=== PATIENT | female | born 1975 | race Caucasian/White ===

== ENCOUNTER 2017-04-05 12:26 | Emergency (ER) | payer OTHER ==
[2017-04-05 14:02] VITALS: O2SAT 100
[2017-04-05] MEDS ORDERED: Sodium Chloride 0.9% 1000 ML 1,000 ML IV STA (14:11)
[2017-04-05] MEDS ORDERED: TORAdol 30 mg Injection IV ONE (14:13)
--- NOTE | 2017-04-05 14:16 | ERPHSYRPT ---
- History of Present Illness Time Seen by Provider: 04/05/17 14:13 Historian: patient Exam Limitations: no limitations Patient Subjective Stated Complaint: pt states she has abdominal pain with dysuria that started on 04/04/17. denies any vomiting or diarrhea. Triage Nursing Assessment: pt pink, warm, dry. abdomen soft, nontender. bowel sounds present in all 4 qauds. pt afebrile. Physician History: This is a 41-year-old white female with history of anxiety and depression. She arrives with complaint of suprapubic pain and dysuria pain in her right flank symptoms since yesterday states her pain is moderately severe no vomiting no diarrhea, Past medical history includes anxiety and depression, Past surgical history includes appendectomy and , Timing/Duration: yesterday Activities at Onset: none Quality: aching, cramping Abdominal Pain Onset Location: suprapubic, flank (right flank) Pain Radiation: flank (right flank) Severity of Pain-Max: moderate Severity of Pain-Current: moderate Modifying Factors: Improves With: nothing Associated Symptoms: back (right flank pain), other (dysuria), No chest pain, No diaphoresis, No diarrhea, No fever/chills, No fatigue, No headache, No heartburn, No loss of appetite, No nausea, No neck pain, No rash, No shortness of breath, No syncope, No vomiting, No weakness Previous symptoms: no prior history Allergies/Adverse Reactions: No Known Drug Allergies Allergy (Unverified 04/05/17 13:03) Home Medications: Alprazolam 1 mg [Xanax 1 mg] 1 mg PO TID 04/05/17 [History] Hx Tetanus, Diphtheria Vaccination/Date Given: Yes (unknown) Hx Influenza Vaccination/Date Given: No Hx Pneumococcal Vaccination/Date Given: No Immunizations Up to Date: Yes - Review of Systems Constitutional: No Fever, No Chills Eyes: No Symptoms Ears, Nose, & Throat: No Symptoms Respiratory: No Cough, No Dyspnea Cardiac: No Chest Pain, No Edema, No Syncope Abdominal/Gastrointestinal: Abdominal Pain Genitourinary Symptoms: Dysuria, Frequency, Flank Pain (right flank pain), No Hematuria, No Hesitancy, No Incontinence, No Urgency, No Urinary Retention, No Menorrhagia, No , No Vaginal Bleeding, No Vaginal Discharge, No Vaginal Itching Musculoskeletal: No Back Pain, No Neck Pain Skin: No Rash Neurological: No Dizziness, No Focal Weakness, No Sensory Changes Psychological: No Symptoms Endocrine: No Symptoms All Other Systems: Reviewed and Negative - Past Medical History Pertinent Past Medical History: Yes Psycho-Social History: Anxiety, Depression Other Medical History: uti - Past Surgical History Past Surgical History: Yes Gastrointestinal: Appendectomy Female Surgical History: Section - Social History Smoking Status: Current every day smoker How long have you smoked: 28 Exposure to second hand smoke: Yes Drug Use: marijuana Patient Lives Alone: No - Female History Hx Last Menstrual Period: mar 20 2017 Hx Now: No - Nursing Vital Signs Nursing Vital Signs: Initial Vital Signs Pulse Rate 88 04/05/17 12:55 Respiratory Rate 16 04/05/17 12:55 Blood Pressure 106/62 04/05/17 12:55 O2 Sat by Pulse Oximetry 98 04/05/17 12:55 Pain Scale Pain Intensity 0 - Physical Exam General Appearance: other (well-developed well-nourished white female moderate distress) Eye Exam: PERRL/EOMI, eyes nml inspection Ears, Nose, Throat Exam: normal ENT inspection, pharynx normal, moist mucous membranes Neck Exam: normal inspection, non-tender, supple, full range of motion Respiratory Exam: normal breath sounds, lungs clear, No respiratory distress Cardiovascular Exam: regular rate/rhythm, normal heart sounds Gastrointestinal/Abdomen Exam: soft, normal bowel sounds, tenderness ( suprapubic tenderness), No distention, No mass, No guarding, No ecchymosis, No pulsatile mass, No rebound Back Exam: normal range of motion, CVA tenderness (right flank tenderness) Extremity Exam: normal inspection, normal range of motion, pelvis stable Neurologic Exam: alert, oriented x 3, cooperative, normal mood/affect, nml cerebellar function, sensation nml, No motor deficits Skin Exam: normal color, warm, dry SpO2 Interpretation: normal (100%) SpO2: 100 Oxygen Delivery: Room Air - Course Nursing assessment & vital signs reviewed: Yes Ordered Tests: Active Orders 24 hr Category Date Time Status IV Insertion STAT Care 04/05/17 14:11 Active AMYLASE Stat Lab 04/05/17 14:26 Completed CBC W DIFF Stat Lab 04/05/17 14:26 Completed CMP Stat Lab 04/05/17 14:26 Completed CULTURE,URINE Stat Lab 04/05/17 14:20 Received HCG QUALITATIVE,SERUM Stat Lab 04/05/17 14:26 Completed LIPASE Stat Lab 04/05/17 14:26 Completed UA W/ MICROSCOPIC Stat Lab 04/05/17 14:20 Completed Urine Triage Profile Stat Lab 04/05/17 14:12 Completed Medication Summary Discontinued Medications Generic Name Dose Route Start Last Admin Trade Name Lianna PRN Reason Stop Dose Admin Hydrocodone Bitart/Acetaminophen 1 tab 04/05/17 15:42 04/05/17 15:45 [place] 5/325 Mg PO 04/05/17 15:43 1 tab STAT ONE Administration Hydrocodone Bitart/Acetaminophen Confirm 04/05/17 15:45 [place] 5/325 Mg Administered 04/05/17 15:46 Dose 1 tab .ROUTE .STK-MED ONE Sodium Chloride 1,000 mls @ 999 mls/hr 04/05/17 14:11 04/05/17 14:28 Sodium Chloride 0.9% 1000 Ml IV 04/05/17 15:11 999 mls/hr .Q1H1M STA Administration Sodium Chloride Confirm 04/05/17 14:28 Sodium Chloride 0.9% 1000 Ml Administered 04/05/17 14:29 Dose 1,000 mls @ ud .ROUTE .STK-MED ONE Ceftriaxone Sodium/Dextrose 1 g in 50 mls @ 100 mls/hr 04/05/17 15:42 15:46 Rocephin 1 Gm-D5w 50 Ml Bag IV 04/05/17 16:11 100 mls/hr STAT STA Administration Ceftriaxone Sodium/Dextrose Confirm 04/05/17 15:45 Rocephin 1 Gm-D5w 50 Ml Bag Administered 04/05/17 15:46 Dose 1 g in 50 mls @ ud IV .STK-MED ONE Ketorolac Tromethamine 30 mg 04/05/17 14:13 04/05/17 14:28 Toradol 30 Mg Injection IV 04/05/17 14:14 30 mg STAT ONE Administration Ketorolac Tromethamine Confirm 04/05/17 14:28 Toradol 30 Mg Injection Administered 04/05/17 14:29 Dose 30 mg .ROUTE .STK-MED ONE Lab/Rad Data: Laboratory Result Diagrams 04/05/17 14:26 04/05/17 14:26 Laboratory Results 04/05/17 04/05/17 04/05/17 Range/Units 14:26 14:26 14:26 WBC 8.2 (4.0-10.5) K/mm3 RBC 4.89 (4.1-5.4) M/mm3 Hgb 14.2 (12.0-16.0) gm/dl Hct 43.7 (35-47) % MCV 89.4 (78-100) fl MCH 29.0 (26-32) pg MCHC 32.5 (32-36) g/dl RDW 13.6 (11.5-14.0) % Plt Count 228 (150-450) K/mm3 MPV 10.3 H (6-9.5) fl Gran % 82.6 H (36.0-66.0) % Lymphocytes % 8.7 L (24.0-44.0) % Monocytes % 8.5 (0.0-12.0) % Eosinophils % 0.1 (0.00-5.0) % Basophils % 0.1 (0.0-0.4) % Basophils # 0.01 (0-0.4) Sodium 136 (136-145) mEq/L Potassium 4.0 (3.5-5.1) mEq/L Chloride 98 (98-107) mEq/L Carbon Dioxide 28.2 (21-32) mEq/L Anion Gap 13.8 (5-15) MEQ/L BUN 12 (9-20) mg/dL Creatinine 1.09 (0.55-1.30) mg/dl Estimated GFR 59 ML/MIN Glucose 88 (70-110) MG/DL Calcium 9.2 (8.5-10.1) mg/dL Total Bilirubin 0.90 (0.2-1.0) mg/dL AST 15 (15-37) U/L ALT 10 L (12-78) U/L Alkaline Phosphatase 53 (46-116) U/L Serum Total Protein 7.1 (6.4-8.2) gm/dL Albumin 4.0 (3.4-5.0) g/dL Amylase 28 (25-115) U/L Lipase 67 L (73-393) U/L Serum , Qual NEGATIVE (Negative) Ur Collection Type Urine Color (YELLOW) Urine Appearance (CLEAR) Urine pH (5-6) Ur Specific [place] (1.005-1.025) Urine Protein (Negative) Urine Ketones (NEGATIVE) Urine Blood (0-5) [place]o/ul Urine Nitrite (NEGATIVE) Urine Bilirubin (NEGATIVE) Urine Urobilinogen (0-1) mg/dL Ur Leukocyte Esterase (NEGATIVE) Urine Microscopic RBC (0-2) /HPF Urine Microscopic WBC (0-5) /HPF Ur Epithelial Cells (FEW) /HPF Urine Bacteria (NEGATIVE) /HPF Urine Culture Reflexed (NO) Urine Glucose (NEGATIVE) mg/dL Urine Opiates Level (NEGATIVE) Ur Methadone (NEGATIVE) Urine Barbiturates (NEGATIVE) Ur Phencyclidine (PCP) (NEGATIVE) Urine Amphetamine (NEGATIVE) U Benzodiazepine Level (NEGATIVE) Urine Cocaine (NEGATIVE) Urine Marijuana (THC) (NEGATIVE) Specimen Received 04/05/17 04/05/17 Range/Units 14:20 14:12 WBC (4.0-10.5) K/mm3 RBC (4.1-5.4) M/mm3 Hgb (12.0-16.0) gm/dl Hct (35-47) % MCV (78-100) fl MCH (26-32) pg MCHC (32-36) g/dl RDW (11.5-14.0) % Plt Count (150-450) K/mm3 MPV (6-9.5) fl Gran % (36.0-66.0) % Lymphocytes % (24.0-44.0) % Monocytes % (0.0-12.0) % Eosinophils % (0.00-5.0) % Basophils % (0.0-0.4) % Basophils # (0-0.4) Sodium (136-145) mEq/L Potassium (3.5-5.1) mEq/L Chloride (98-107) mEq/L Carbon Dioxide (21-32) mEq/L Anion Gap (5-15) MEQ/L BUN (9-20) mg/dL Creatinine (0.55-1.30) mg/dl Estimated GFR ML/MIN Glucose (70-110) MG/DL Calcium (8.5-10.1) mg/dL Total Bilirubin (0.2-1.0) mg/dL AST (15-37) U/L ALT (12-78) U/L Alkaline Phosphatase (46-116) U/L Serum Total Protein (6.4-8.2) gm/dL Albumin (3.4-5.0) g/dL Amylase (25-115) U/L Lipase (73-393) U/L Serum , Qual (Negative) Ur Collection Type VOID Urine Color YELLOW (YELLOW) Urine Appearance CLOUDY (CLEAR) Urine pH 6.0 (5-6) Ur Specific [place] 1.015 (1.005-1.025) Urine Protein 30 (Negative) Urine Ketones MODERATE (NEGATIVE) Urine Blood 250 (0-5) [place]o/ul Urine Nitrite POSITIVE (NEGATIVE) Urine Bilirubin NEGATIVE (NEGATIVE) Urine Urobilinogen 4 (0-1) mg/dL Ur Leukocyte Esterase 2+ (NEGATIVE) Urine Microscopic RBC 0-2 (0-2) /HPF Urine Microscopic WBC >100 (0-5) /HPF Ur Epithelial Cells FEW (FEW) /HPF Urine Bacteria PACKED (NEGATIVE) /HPF Urine Culture Reflexed YES (NO) Urine Glucose NEGATIVE (NEGATIVE) mg/dL Urine Opiates Level NEG. (NEGATIVE) Ur Methadone NEG. (NEGATIVE) Urine Barbiturates NEG. (NEGATIVE) Ur Phencyclidine (PCP) NEG. (NEGATIVE) Urine Amphetamine POS. (NEGATIVE) U Benzodiazepine Level POS. (NEGATIVE) Urine Cocaine NEG. (NEGATIVE) Urine Marijuana (THC) POS. (NEGATIVE) Specimen Received 04/05/17 1415 - Progress Progress: improved Progress Note: 04/05/17 15:23 41-year-old white female arrives with complaint of right flank pain dysuria symptoms for 4 days Awaiting final results of urine patient does have positive nitrites positive leukocyte esterase positive, blood. White count is normal. Unfortunately urine drug screen turns up with positive amphetamines positive benzodiazepine and positive THC. Patient states that she has a prescription for Xanax however I do not see a fill on this since March 2016. Patient is given 1 L of normal saline have given patient Toradol for pain, Will anticipate discharged with antibiotics nonsteroidal anti-inflammatories for pain, - Departure Time of Disposition: 16:25 Departure Disposition: Home Clinical Impression: Right flank pain Abdominal pain Qualifiers: Abdominal location: unspecified location Qualified Code(s): R10.9 - Unspecified abdominal pain UTI (urinary tract infection) Qualifiers: Urinary tract infection type: acute cystitis Hematuria presence: without hematuria Qualified Code(s): N30.00 - Acute cystitis without hematuria Condition: Fair Critical Care Time: No Referrals: DOCTOR,NO FAMILY [Primary Care Provider] - Additional Instructions: Return home. Plenty of fluids. Bactrim DS one orally twice a day for 10 days. [place] 5/325 #10 one orally every 4-6 hours as needed for pain. Follow-up with your family doctor. Return for acute distress or for severe symptoms. Prescriptions: Hydrocodone/Acetaminophen [[place] 5-325 Tablet] 1 tab PO Q4-6HPRN PRN #10 tablet MDD 6 tablets PRN Reason: Pain Smz/Tmp Ds Tablet [Bactrim Ds Tablet] 1 tab PO BID #20 tablet
[2017-04-05 14:20] LABS: Appearance CLOUDY (CLEAR); Leukocyte Esterase 2+ (NEGATIVE); Nitrite POSITIVE (NEGATIVE); Protein,Urine Dip 30 (Negative); Specific Gravity 1.015 (1.005-1.025)
[2017-04-05 14:21] LABS: Bilirubin NEGATIVE (NEGATIVE); Blood 250 Ery/ul (0-5); Glucose NEGATIVE (NEGATIVE); Ketones MODERATE (NEGATIVE); Urobilinogen 4 mg/dL (0-1)
[2017-04-05 14:25] LABS: Amphetamine,Urine POS. (NEGATIVE); Barbiturate,Urine NEG. (NEGATIVE); Benzodiazepine,Urine POS. (NEGATIVE); Cocaine,Urine NEG. (NEGATIVE); Methadone,Urine NEG. (NEGATIVE); Opiate,Urine NEG. (NEGATIVE); PCP,Urine NEG. (NEGATIVE); THC,Urine POS. (NEGATIVE)
[2017-04-05] MEDS ORDERED: TORAdol 30 mg Injection ONE (14:28)
[2017-04-05] MEDS ORDERED: Sodium Chloride 0.9% 1000 ML 1,000 ML ONE (14:28)
[2017-04-05 14:35] LABS: BASOPHIL % 0.1 % (0.0-0.4); Basophil (Absolute #) 0.01 (0-0.4); Eosinophil % 0.1 % (0.00-5.0); Eosinophil (Absolute #) 0.01 (0-0.5); Granulocyte Absolute (ANC) 6.79 (1.4-6.9); Granulocytes % 82.6 % (36.0-66.0); Hematocrit 43.7 % (35-47); Hemoglobin 14.2 gm/dl (12.0-16.0); Lymphocyte (Absolute #) 0.72 (1.0-4.6); Lymphocytes % 8.7 % (24.0-44.0); Mean Cell Volume 89.4 fl (78-100); Mean Corpuscular Hgb Concent. 32.5 g/dl (32-36); Mean Platelet Volume 10.3 fl (6-9.5); Monocytes % 8.5 % (0.0-12.0); Platelet Count 228 K/mm3 (150-450); Red Blood Count 4.89 M/mm3 (4.1-5.4); Red Cell Distribution Width 13.6 % (11.5-14.0); White Blood Count 8.2 K/mm3 (4.0-10.5)
[2017-04-05 15:22] LABS: Bacteria PACKED /HPF (NEGATIVE); Epithelial Cells FEW /HPF (FEW); WBC >100 /HPF (0-5)
[2017-04-05 15:37] LABS: ANION GAP 13.8 MEQ/L (5-15); BILIRUBIN,TOTAL 0.9 mg/dL (0.2-1.0); Calcium 9.2 mg/dL (8.5-10.1); Carbon Dioxide 28.2 mEq/L (21-32); Creatinine 1 1.09 mg/dl (0.55-1.30); Total Protein 7.1 gm/dL (6.4-8.2)
[2017-04-05] MEDS ORDERED: ROCEPHIN 1 Gm-D5w 50 ml Bag** 1 G/50 ML IVPB IV STA (15:42)
[2017-04-05] MEDS ORDERED: NORCO 5/325 MG PO ONE (15:42)
[2017-04-05] MEDS ORDERED: ROCEPHIN 1 Gm-D5w 50 ml Bag** 1 G/50 ML IVPB IV ONE (15:45)
[2017-04-05] MEDS ORDERED: NORCO 5/325 MG ONE (15:45)
[2017-04-05 15:53] VITALS: BP 107/65; PULSE 78
== END 2017-04-05 16:23 | disposition home or self-care (01) ==
LOC: ED 12:26
DX: R10.9 Unspecified abdominal pain (principal); N30.00 Acute cystitis without hematuria; R30.0 Dysuria
CPT/HCPCS: 36000; 36415; 80053; 80307; 81000; 82150; 83690; 84703; 85025; 87077; 87086; 87186; 96360; 96365; 96374; 99284; J0696; J1885; A9270-GY

== ENCOUNTER 2017-05-23 18:18 | Emergency (ER) | payer OTHER ==
[2017-05-23] MEDS ORDERED: GlucaGen 1 MG ONE (18:22)
[2017-05-23 18:25] VITALS: BP 152/98; PULSE 112; O2SAT 99
[2017-05-23] MEDS ORDERED: GlucaGen 1 MG IV ONE (18:28)
[2017-05-23] MEDS ORDERED: Ativan 2 MG/1 ML VIAL IV ONE (18:29)
--- NOTE | 2017-05-23 18:29 | ERPHSYRPT ---
- History of Present Illness Time Seen by Provider: 05/23/17 18:23 Source: patient Exam Limitations: no limitations Physician History: The patient is a 41-year-old female complaining that she was eating a microwave burrito when the corner of it got stuck in her throat just a few minutes before arrival. She tried swallowing liquid but it just comes right back up. She is very anxious and worried at this time. She is able to breathe and speak. She is not able to swallow her own saliva. She thinks that she ate a hard corner of the softgel burrito that became hard when she was using the microwave too long. Her past medical history is significant for anxiety. Timing/Duration: abrupt onset Severity: moderate ENT Location: throat Prearrival Treatment: no prearrival treatment Modifying Factors: Improves With: other (eating) Associated Symptoms: drooling, difficulty swallowing Allergies/Adverse Reactions: No Known Drug Allergies Allergy (Verified 05/23/17 18:25) Home Medications: Alprazolam 1 mg [Xanax 1 mg] 1 mg PO TID 04/05/17 [History] Hx Tetanus, Diphtheria Vaccination/Date Given: Yes (unknown) Hx Influenza Vaccination/Date Given: No Hx Pneumococcal Vaccination/Date Given: No - Review of Systems Constitutional: No Fever, No Chills Eyes: No Symptoms Ears, Nose, & Throat: No Symptoms Respiratory: No Cough, No Dyspnea Cardiac: No Chest Pain, No Edema, No Syncope Abdominal/Gastrointestinal: No Abdominal Pain, No Nausea, No Vomiting, No Diarrhea Genitourinary Symptoms: No Dysuria Musculoskeletal: No Back Pain, No Neck Pain Skin: No Rash Neurological: No Dizziness, No Focal Weakness, No Sensory Changes Psychological: No Symptoms Endocrine: No Symptoms Hematologic/Lymphatic: No Symptoms Immunological/Allergic: No Symptoms All Other Systems: Reviewed and Negative - Past Medical History Pertinent Past Medical History: Yes Psycho-Social History: Anxiety, Depression Other Medical History: uti - Past Surgical History Past Surgical History: Yes Gastrointestinal: Appendectomy Female Surgical History: Section - Social History Smoking Status: Current every day smoker How long have you smoked: 28 Exposure to second hand smoke: Yes Drug Use: marijuana Patient Lives Alone: No - Physical Exam General Appearance: mild distress, anxiety Eye Exam: bilateral eye: normal inspection, PERRL Ear Exam: bilateral ear: auricle normal Nasal Exam: normal inspection Throat Exam: foreign body (unable to visualize) Neck Exam: supple Cardiovascular/Respiratory Exam: normal breath sounds, regular rate/rhythm Abdominal Exam: non-tender, soft Neurologic Exam: alert, oriented x 3, sensation nml, No motor deficits Skin Exam: normal color, warm, dry SpO2 Interpretation: normal Ordered Tests: Medication Summary Discontinued Medications Generic Name Dose Route Start Last Admin Trade Name Lianna PRN Reason Stop Dose Admin Glucagon Confirm 05/23/17 18:22 Glucagen 1 Mg Administered 05/23/17 18:23 Dose 1 mg .ROUTE .[place] ONE - Progress Progress: improved Progress Note: 05/23/17 18:35 Within the a minute after receiving glucagon 1 mg by IV, the patient relax enough to dislodge and regurgitate the burrito that she had swallowed. She is much better now. She still requested some Ativan to calm her nerves. The patient was given 1 mg Ativan by IV. Counseled pt/family regarding: diagnosis - Departure Time of Disposition: 18:36 Departure Disposition: Home Clinical Impression: Esophageal foreign body Condition: Stable Critical Care Time: No Referrals: DOCTOR,NO FAMILY [Primary Care Provider] - Additional Instructions: You had a foreign body lodged in your esophagus that you were able to regurgitate after receiving glucagon 1 mg by IV. You also received Ativan 1 mg by IV. Follow-up as needed.
[2017-05-23] MEDS ORDERED: Ativan 2 MG/1 ML VIAL ONE (18:30)
== END 2017-05-23 18:50 | disposition home or self-care (01) ==
LOC: ED 18:18
DX: T18.128A Food in esophagus causing other injury, initial encounter (principal)
CPT/HCPCS: 36000; 96374; 96375; 99284; J1610; J2060

== ENCOUNTER 2017-09-27 12:55 | Emergency (ER) | payer OTHER ==
[2017-09-27 13:12] VITALS: BP 130/74; PULSE 68; O2SAT 99
--- NOTE | 2017-09-27 13:23 | ERPHSYRPT ---
- History of Present Illness Time Seen by Provider: 09/27/17 13:12 Source: patient Exam Limitations: no limitations Patient Subjective Stated Complaint: pt here for a rash for over a week. no new meds Triage Nursing Assessment: pt alert ,walked in, resp easy, skin w/d/p. has red rash to arms and neck, pt has tried lotions,bedadryl,co itching Physician History: The patient is a 41-year-old female complaining of an itchy rash on both forearms and the right side of her neck for about one week. She read on the Internet and was worried that it might be scabies. She has a history of anxiety and has not had her medicines for some time. She is worried that this may be something serious. Timing/Duration: week(s) (1) Quality: itchy Severity: mild Location: extremities (forearms), neck Possible Causes: no cause identified Modifying Factors: Improves With: calamine lotion Associated Symptoms: rash Allergies/Adverse Reactions: No Known Drug Allergies Allergy (Verified 09/27/17 13:07) Home Medications: Alprazolam 1 mg [Xanax 1 mg] 1 mg PO TID 04/05/17 [History] Fluoxetine HCl 20 mg [Prozac 20 MG] 20 mg DAILY 09/27/17 [History] Hx Tetanus, Diphtheria Vaccination/Date Given: No Hx Influenza Vaccination/Date Given: No Hx Pneumococcal Vaccination/Date Given: No Immunizations Up to Date: Yes - Review of Systems Constitutional: No Fever, No Chills Eyes: No Symptoms Ears, Nose, & Throat: No Symptoms Respiratory: No Cough, No Dyspnea Cardiac: No Chest Pain, No Edema, No Syncope Abdominal/Gastrointestinal: No Abdominal Pain, No Nausea, No Vomiting, No Diarrhea Genitourinary Symptoms: No Dysuria Musculoskeletal: No Back Pain, No Neck Pain Skin: Rash Neurological: No Dizziness, No Focal Weakness, No Sensory Changes Psychological: No Symptoms Endocrine: No Symptoms Hematologic/Lymphatic: No Symptoms Immunological/Allergic: No Symptoms All Other Systems: Reviewed and Negative - Past Medical History Pertinent Past Medical History: Yes Psycho-Social History: Anxiety, Depression Other Medical History: uti - Past Surgical History Past Surgical History: Yes Gastrointestinal: Appendectomy Female Surgical History: Section - Social History Smoking Status: Current every day smoker How long have you smoked: 28 Exposure to second hand smoke: Yes Drug Use: marijuana Patient Lives Alone: No - Female History Hx Last Menstrual Period: 30 days ago Hx Now: No - Nursing Vital Signs Nursing Vital Signs: Initial Vital Signs O2 Sat by Pulse Oximetry 98 09/27/17 13:02 Pain Scale Pain Intensity 0 - Physical Exam General Appearance: alert, anxiety Eye Exam: PERRL/EOMI, eyes nml inspection Ears, Nose, Throat Exam: normal ENT inspection, pharynx normal, moist mucous membranes Neck Exam: normal inspection, non-tender, supple, full range of motion Respiratory Exam: normal breath sounds, lungs clear, No respiratory distress Cardiovascular Exam: regular rate/rhythm, normal heart sounds Gastrointestinal/Abdomen Exam: soft, mass, No tenderness Pelvic Exam: not done Rectal Exam: not done Back Exam: normal inspection, normal range of motion, No CVA tenderness, No vertebral tenderness Extremity Exam: normal inspection, normal range of motion Neurologic Exam: alert, oriented x 3, cooperative, normal mood/affect, sensation nml, No motor deficits Skin Exam: rash (linear red rash on bilateral forearms and right neck.) SpO2 Interpretation: normal SpO2: 99 Oxygen Delivery: Room Air - Progress Progress: unchanged - Departure Time of Disposition: 13:26 Departure Disposition: Home Clinical Impression: Poison [place] dermatitis Condition: Stable Critical Care Time: No Additional Instructions: You have a rash consistent with exposure to poison [place]. Take prednisone 60 mg once a day for 5 days. You have been given a list of local doctors. Please follow-up with a local doctor for evaluation of anxiety. Prescriptions: Prednisone 20 mg [Deltasone 20 mg] 3 tab PO DAILY #15 tablet
== END 2017-09-27 13:42 | disposition home or self-care (01) ==
LOC: ED 12:55
DX: L23.7 Allergic contact dermatitis due to plants, except food (principal)
CPT/HCPCS: 99283

== ENCOUNTER 2025-01-25 00:44 | Emergency (ER) | payer OTHER ==
[2025-01-25 00:59] VITALS: TEMP 96.8
--- NOTE | 2025-01-25 01:10 | ERPHSYRPT ---
- History of Present Illness Patient Subjective Stated Complaint: c/o epigastric pain Triage Nursing Assessment: patient brought to ED by friend with c/o epigastric pain that had been going on for a couple days. patient states she has had some episodes of diarrhea and consitpation. patient's last BM was two days ago, bowel sounds oresent in all 4 quads, gait steady, slightly hypertensive, doesn't appear to be in any distress at this time. Physician History: Abdominal pain, onset of symptoms about a week ago, no previous evaluation for recurrent abdominal pain, she does have some intermittent constipation, he also feels bloated, show any food allergies, last bowel movement 2 days ago, no nausea or vomiting Allergies/Adverse Reactions: tramadol Adverse Reaction (Verified 01/25/25 01:00) Itching Hx Tetanus, Diphtheria Vaccination/Date Given: No Hx Influenza Vaccination/Date Given: No Hx Pneumococcal Vaccination/Date Given: No Travel Risk - International Travel Have you traveled outside of the country in past 3 weeks: No - Emerging Infectious Disease Are you exhibiting symptoms associated with any current EIDs: Yes Symptoms: Cough: New Onset - Past Medical History Pertinent Past Medical History: Yes Neurological History: No Pertinent History ENT History: No Pertinent History Cardiac History: No Pertinent History Respiratory History: No Pertinent History Endocrine Medical History: No Pertinent History Musculoskeletal History: No Pertinent History GI Medical History: GERD History: No Pertinent History Psycho-Social History: Anxiety, Depression Female Reproductive Disorders: No Pertinent History Other Medical History: frequent uti - Past Surgical History Past Surgical History: Yes Gastrointestinal: Appendectomy Female Surgical History: Section, Tubal Ligation - Female History Hx Last Menstrual Period: 3 weeks ago Hx Now: No - Social History Smoking Status: Never smoker Exposure to second hand smoke: No Drug Use: marijuana - Social Determinants of Health Will the patient participate in the screening: Yes Do you worry about a steady place to live?: No Do you have any problems with any of the following?: No known problems In the past 12 months,have you had to go without utilities?: No Transportation Issues: No Has anyone in your support network made you feel unsafe?: No Have you or anyone in your house had to go w/o enough food: No - Nursing Vital Signs Nursing Vital Signs: Initial Vital Signs Temperature 96.8 F 01/25/25 00:48 Pulse Rate 98 H 01/25/25 00:48 Respiratory Rate 19 12/02/25 00:48 Blood Pressure 152/97 01/25/25 00:48 O2 Sat by Pulse Oximetry 99 01/25/25 00:48 Pain Scale Pain Intensity 0 - Physical Exam General Appearance: no apparent distress, alert, obese Eye Exam: PERRL/EOMI, eyes nml inspection Ears, Nose, Throat Exam: normal ENT inspection, pharynx normal Neck Exam: normal inspection, non-tender, supple, full range of motion Respiratory Exam: normal breath sounds, lungs clear Cardiovascular Exam: regular rate/rhythm, normal heart sounds Gastrointestinal/Abdomen Exam: soft, tenderness (epigastric), No guarding, No rebound, No organomegaly Extremity Exam: normal inspection, normal range of motion Neurologic Exam: alert, oriented x 3, cooperative, 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 Skin Exam: normal color, warm, dry SpO2 Interpretation: normal SpO2: 99 Ordered Tests: Active Orders 24 hr Category Date Time Status IV Insertion STAT Care 01/25/25 01:03 Active ABDOMEN AND PELVIS W CONTRAST [CT] Stat Exams 01/25/25 01:07 Taken CBC W DIFF Stat Lab 01/25/25 01:15 Completed CMP Stat Lab 01/25/25 01:15 Completed CULTURE,URINE Stat Lab 01/25/25 01:04 Received LIPASE Stat Lab 01/25/25 01:15 Completed UA W/RFX UR CULTURE Stat Lab 01/25/25 01:04 Completed Medication Summary Discontinued Medications Generic Name Dose Route Start Last Admin Trade Name Mychalq PRN Reason Stop Dose Admin Morphine Sulfate 4 mg 01/25/25 02:17 01/25/25 02:21 Morphine Sulfate 4 Mg/Ml Injection IV 01/25/25 02:18 4 mg STAT ONE Administration Morphine Sulfate Confirm 01/25/25 02:21 Morphine Sulfate 4 Mg/Ml Injection Administered 01/25/25 02:22 Dose 4 mg .ROUTE .STK-MED ONE Ondansetron HCl 4 mg 01/25/25 02:18 01/25/25 02:23 Ondansetron Hcl 4 Mg/2 Ml Vial IV 01/25/25 02:19 4 mg STAT ONE Administration Ondansetron HCl Confirm 01/25/25 02:20 Ondansetron Hcl 4 Mg/2 Ml Vial Administered 01/25/25 02:21 Dose 4 mg .ROUTE .STK-MED ONE Lab/Rad Data: Laboratory Result Diagrams 01/25/25 01:15 01/25/25 01:15 Laboratory Results 01/25/25 01/25/25 01/25/25 Range/Units 01:15 01:15 01:04 WBC 9.1 (3.98-10.04) x10^3/uL RBC 4.86 (3.93-5.22) x10^6/uL Hgb 16.5 H (11.2-15.7) g/dL Hct 48.7 H (34.1-44.9) % MCV 100.2 H (79.4-94.8) fL MCH 34.0 H (25.6-32.2) pg MCHC 33.9 (32.2-35.5) g/dL RDW 12.6 (11.7-14.4) % Plt Count 285 (182-369) x10^3/uL MPV 10.4 (9.4-12.3) fL Gran % 68.7 (34.0-71.1) % Immature Gran % (Auto) 0.2 (0.001-0.429) % Nucleat RBC Rel Count 0.0 (0.00-0.2) % Eos # (Auto) 0.04 (0.04-0.36) x10^3/uL Immature Gran # (Auto) 0.02 (0.001-0.031) x10^3u/L Absolute Lymphs (auto) 1.94 (1.18-3.74) x10^3/uL Absolute Monos (auto) 0.83 (0.24-0.86) x10^3/uL Absolute Nucleated RBC 0.00 (0.00-0.012) x10^3u/L Lymphocytes % 21.3 (19.3-51.7) % Monocytes % 9.1 (4.7-12.5) % Eosinophils % 0.4 L (0.7-5.8) % Basophils % 0.3 (0.1-1.2) % Absolute Granulocytes 6.25 H (1.56-6.13) x10^3/uL Basophils # 0.03 (0.01-0.08) x10^3/uL Sodium 133 L (135-145) mmol/L Potassium 3.5 (3.5-5.1) mmol/L Chloride 95 L (98-107) mmol/L Carbon Dioxide 27 (22-30) mmol/L Anion Gap 15.3 H (5-15) MEQ/L BUN 17 (7-17) mg/dL Creatinine 1.13 H (0.52-1.04) mg/dL Estimated GFR 60.0 ML/MIN Glucose 120 H (74-106) mg/dL Calcium 9.9 (8.4-10.2) mg/dL Total Bilirubin 1.20 (0.2-1.3) mg/dL AST 42 H (14-36) U/L ALT 38 H (0-35) U/L Alkaline Phosphatase 87 (38-126) U/L Serum Total Protein 8.5 H (6.3-8.2) g/dL Albumin 5.0 (3.5-5.0) g/dL Lipase 70 (23-300) U/L Urine Color Dark Yellow A (Yellow) Urine Appearance Turbid A (Clear) Urine pH 6.0 (4.6-8.0) Ur Specific [place] 1.025 (1.005-1.030) Urine Protein 30 (Negative) Urine Glucose (UA) Negative (Negative) mg/dL Urine Ketones Trace A (Negative) Urine Blood Trace (Negative) Urine Nitrite Negative (Negative) Urine Bilirubin Negative (Negative) Urine Urobilinogen 1.0 A (0.2) mg/dL Ur Leukocyte Esterase Small A (Negative) U Hyaline Cast (Auto) 3-5 A (0-2) /LPF Urine Microscopic RBC 0-2 (0-5) /HPF Urine Microscopic WBC 51-100 A (0-5) /HPF Ur Epithelial Cells Few (None Seen) /HPF Urine Bacteria Many A (None Seen) /HPF Urine Culture Reflexed YES (NO) - Progress Progress Note: 01/25/25 04:[address] results, clinically she has improved after receiving pain medication, recommend clear liquid diet for the next 24 hours, follow-up with a primary care doctor this week for further outpatient workup - Departure Departure Disposition: Home Clinical Impression: Abdominal pain Qualifiers: Abdominal location: epigastric Qualified Code(s): R10.13 - Epigastric pain UTI (urinary tract infection) Qualifiers: Urinary tract infection type: site unspecified Hematuria presence: without hematuria Qualified Code(s): N39.0 - Urinary tract infection, site not specified Condition: Stable Critical Care Time: No Referrals: JOSE DE JESUS MD [ACTIVE STAFF, [facility]] - Follow Up with PCP/3 days Instructions: Abdominal pain, Urinary tract infection in adults - ED discharge instructions, Clear liquid diet Additional Instructions: Clear diet for 24 hours, follow-up to primary care doctor this week, medication as prescribed Prescriptions: [id number] [Cefadroxil] 500 mg PO BID #14 cap
[2025-01-25 01:14] LABS: Glucose, Urine Negative (Negative); Protein,Urine Dip 30 (Negative); RBC 0-2 /HPF (0-5); WBC 51-100 /HPF (0-5)
[2025-01-25 01:21] LABS: BASOPHIL % 0.3 % (0.1-1.2); Basophil (Absolute #) 0.03 x10^3/uL (0.01-0.08); Eosinophil (Absolute #) 0.04 x10^3/uL (0.04-0.36); Hematocrit 48.7 % (34.1-44.9); Hemoglobin 16.5 g/dL (11.2-15.7); IMMATURE GRAN # 0.02 x10^3u/L (0.001-0.031); IMMATURE GRAN % 0.2 % (0.001-0.429); Lymphocyte (Absolute #) 1.94 x10^3/uL (1.18-3.74); Mean Corpuscular Hemoglobin 34.0 pg (25.6-32.2); Mean Corpuscular Hgb Concent. 33.9 g/dL (32.2-35.5); Monocyte (Absolute #) 0.83 x10^3/uL (0.24-0.86); NUCLEATED RBC # 0.00 x10^3u/L (0.00-0.012); NUCLEATED RBC % 0.0 % (0.00-0.2); Platelet Count 285 x10^3/uL (182-369); Red Blood Count 4.86 x10^6/uL (3.93-5.22); White Blood Count 9.1 x10^3/uL (3.98-10.04)
[2025-01-25 01:36] LABS: Calcium 9.9 mg/dL (8.4-10.2); Carbon Dioxide 27.0 mmol/L (22-30); Creatinine 1 1.13 mg/dL (0.52-1.04); EST GLOMERULAR FILTRATION RATE 60.0 ML/MIN; Glucose 120.0 mg/dL (74-106); Potassium 3.5 mmol/L (3.5-5.1); SGOT/AST 42.0 U/L (14-36); SGPT/ALT 38.0 U/L (0-35); Total Protein 8.5 g/dL (6.3-8.2)
[2025-01-25] MEDS ORDERED: Zofran 4 MG/2 ML VIAL ONE (02:20)
[2025-01-25] MEDS ORDERED: MORPHINE SULFATE 4 MG INJ ONE (02:21)
[2025-01-25] MEDS: MORPHINE SULFATE 4 MG INJ IV ONE (02:21)
[2025-01-25] MEDS: Zofran 4 MG/2 ML VIAL IV ONE (02:23)
[2025-01-25 04:04] VITALS: BP 147/87; PULSE 73; RESP 16
[2025-01-25 04:06] VITALS: O2SAT 99
--- NOTE | 2025-01-25 10:58 | XRAY ---
CLINICAL HISTORY: ABD PAIN COMPARISON: None. TECHNIQUE: Contiguous axial images were obtained from the level of the diaphragm to the pubic symphysis with intravenous contrast. Coronal and sagittal reconstructions were likewise performed and indicated to increase the sensitivity for detecting clinically relevant pathology. If IV contrast material had not been administered, the likelihood of detecting abnormalities relevant to the patient's condition would have been substantially decreased. CT scan was performed according to ALARA (as low as reasonably achievable). FINDINGS: The visualized lung bases are clear. The liver is normal in size and reduced attenuation. No focal liver lesions are seen. There is no intra or extrahepatic biliary ductal dilatation. Hepatic vasculature is patent. The gallbladder is present. The spleen, pancreas, and adrenal glands are unremarkable. The kidneys are normal in size and attenuation. There is no hydronephrosis or perinephric fat stranding. No renal calculi or renal masses are identified. The ureters are normal in caliber and no ureteral calculi are seen. The bladder is normal in contour. Pelvic viscera are unremarkable. No imaging evidence of appendicitis. Abdominal and pelvic vasculature is patent. No adenopathy or fluid collections are seen. No aggressive appearing osseous lesions are identified. Submucosal fatty deposition is noted involving the ascending colon and transverse colon - suggest possibility of recurrent colitis changes - clinical correlation suggested. IMPRESSION: Hepatic steatosis. Submucosal fatty deposition is noted involving the ascending colon and transverse colon - suggest possibility of recurrent colitis changes - clinical correlation suggested. Electronically Signed by: Norberto Condon MD. (01/25/2025 02:46:24 EST)
== END 2025-01-25 04:17 | disposition home or self-care (01) ==
LOC: ED 00:44
DX: N39.0 Urinary tract infection, site not specified (principal); R10.13 Epigastric pain